=== PATIENT | male | born 1955 ===

== ENCOUNTER 2017-09-20 08:00 | Day surgery (SDC) | payer OTHER ==
[~2017-09-20] VITALS: Ht 167.6 cm; Wt 88.5 kg
[~2017-09-20 08:00] MED LIST: ALLOPURINOL; AZOR 5-20 MG T1 EACH PO; DICLOFENAC SOD100 GM; ZETIA10 MG PO
== END 2017-09-20 12:30 | disposition home or self-care (01) ==
LOC: CIR.AMB 08:00 → EDSTATUS 09:00 → SURH 09:00 → CIR.AMB 12:30 → O/R 14:25
DX: M48.07 Spinal stenosis, lumbosacral region (principal); M51.17 Intervertebral disc disorders with radiculopathy, lumbosacral region; M47.27 Other spondylosis with radiculopathy, lumbosacral region